=== PATIENT | male | born 1940 | race Caucasian/White ===

== ENCOUNTER 2017-06-08 08:06 | Day surgery (SDC) | payer MEDICARE, OTHER ==
[~2017-06-08] VITALS: Ht 162.6 cm; Wt 62.6 kg
[2017-06-08] MEDS ORDERED: NITROGLYCERIN 2% OINT 1 GM UNIT DOSE PACKET ONE ×2 (08:14→08:15)
[2017-06-08] MEDS ORDERED: morphine INJ 10 MG/ML 1ML (SYR OR VIAL) ONE (08:18)
[2017-06-08] MEDS ORDERED: HEParin 1000 UNIT/ML (10ML VIAL) FOR BOLUS ONE ×2 (08:18→08:37)
[2017-06-08] MEDS ORDERED: HEParin DRIP 25000 UNIT/500ML 500 ML IV ONE ×3 (08:18→13:19)
[2017-06-08] MEDS ORDERED: meTOprolol 5 MG/5 ML (LOPRESSOR) VIAL ONE (08:28)
[2017-06-08] MEDS ORDERED: HEParin 1000 UNIT/ML (10ML VIAL) FOR BOLUS IV SCH (08:30)
[2017-06-08] MEDS ORDERED: morphine INJ 10 MG/ML 1ML (SYR OR VIAL) IV STA (08:31)
[2017-06-08] MEDS ORDERED: LIDOCAINE 1% INJ 50 ML (XYLOCAINE) VIAL ONE (08:36)
[2017-06-08] MEDS ORDERED: NS IV 1000 ML 0 ML ONE (08:36)
[2017-06-08] MEDS ORDERED: NITRO DRIP 25000 MCG/D5W 250 ML IV ONE (08:37)
[2017-06-08] MEDS ORDERED: HEParin (CATH LAB) 2,000 ML IV ONE (08:37)
[2017-06-08] MEDS ORDERED: MIDAZOLAM 5 MG/5 ML (VERSED) VIAL ONE (08:38)
[2017-06-08] MEDS ORDERED: diphenhydrAMINE 50 MG/ML INJ (BENADRYL) ONE (08:39)
[2017-06-08] MEDS ORDERED: fentaNYL INJECTION 100 MCG/2 ML AMP ONE (08:39)
[2017-06-08 08:40] LABS: BASOPHILS % (AUTO) 0 % (0-10); EOSINOPHILS # (AUTO) 0.3 10^3/uL (0.0-0.3); EOSINOPHILS % (AUTO) 3 % (0-10); HEMATOCRIT 43 % (40-54); HEMOGLOBIN 14.4 G/DL (13.3-17.7); LYMPHOCYTES # (AUTO) 2.2 X 10^3 (1.0-4.0); LYMPHOCYTES % (AUTO) 23 % (12-44); MEAN CORPUSCULAR HEMOGLOBIN 33 PG (25-34); MEAN CORPUSCULAR HGB CONC 33 G/DL (32-36); MEAN CORPUSCULAR VOLUME 98 FL (80-99); MEAN PLATELET VOLUME 9.8 FL (7.4-10.4); MONOCYTES # (AUTO) 1.2 X 10^3 (0.0-1.0); MONOCYTES % (AUTO) 12 % (0-12); NEUTROPHILS # (AUTO) 5.8 X 10^3 (1.8-7.8); NEUTROPHILS % (AUTO) 61 % (42-75); PLATELET COUNT 262 10^3/uL (130-400); RED BLOOD COUNT 4.42 10^6/uL (4.35-5.85); RED CELL DISTRIBUTION WIDTH 13.9 % (10.0-14.5); WHITE BLOOD COUNT 9.5 10^3/uL (4.3-11.0)
--- NOTE | 2017-06-08 08:42 | ED Chest Pain ---
General Chief Complaint: Chest Pain Stated Complaint: CHEST PAIN Nursing Triage Note: pt reports at 0300 this am he woke up with medial cp that radiated to his l arm and soa. pt has hx of IN and stent placement x 3. Nursing Sepsis Screen: No Definite Risk Source: patient, family, EMS Exam Limitations: no limitations History of Present Illness Date Seen by Provider: Jun 08, 2017 Time Seen by Provider: 08:10 Initial Comments This 77-year-old white male presents with a complaint of severe chest pain with associated diaphoresis and shortness of breath that radiated to his left arm. 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 The paramedics in route gave the patient aspirin and 3 sublingual nitroglycerin. Patient's chest pain was minimally improved. They gave the patient 50 g of fentanyl IV. Next Patient has a history of esophageal cancer surgically removed. The patient denies vomiting, headache, lateralizing localizing neurologic complaints. Dr. Harley was notified on patient arrival. The Lugger was activated. Orders for IV metoprolol, heparin bolus and drip, and Plavix orally were received from Dr. Harley. Allergies and Home Medications Allergies Coded Allergies: No Known Drug Allergies (Unverified , 06/08/17) Patient Home Medication List Home Medication List Reviewed: Yes Review of Systems Constitutional: No fever EENTM: No Symptoms Reported Respiratory: Denies Cough; Shortness of Air Cardiovascular: See HPI, Chest Pain; Denies Palpitations, Denies Syncope Gastrointestinal: Denies Vomiting Genitourinary: No Symptoms Reported Musculoskeletal: no symptoms reported Skin: no symptoms reported Psychiatric/Neurological: No Symptoms Reported Endocrine: No Symptoms Reported Hematologic/Lymphatic: No Symptoms Reported Past Igepfsx-Qzagyn-Mujqmk Hx Past Med/Social Hx: Reviewed Nursing Past Med/Soc Hx Patient Social History Alcohol Use: Occasionally Uses Recreational Drug Use: No Smoking Status: Former Smoker Type Used: Cigarettes Former Smoker, Quit: Jun 13, 1964 Recent Foreign Travel: No Contact w/Someone Who Travel: No Recent Infectious Disease Expo: No Physical Abuse: No Sexual Abuse: No Mistreated: No Fear: No Past Medical History Nursing Suicide Risk Score: 0 Physical Exam Vital Signs Vital Signs - First Documented 06/08/17 08:16 Temp 97.2 Pulse 77 Resp 20 B/P (MAP) 136/71 (92) Pulse Ox 97 O2 Delivery Nasal Cannula O2 Flow Rate 2.0 Capillary Refill : Less Than 3 Seconds General Appearance: WD/WN, Thin HEENT: PERRL/EOMI, TMs Normal, Normal ENT Inspection, Pharynx Normal Neck: Full Range of Motion, Normal Inspection Respiratory: Chest Non Tender, Lungs Clear, Normal Breath Sounds Cardiovascular: Regular Rate, Rhythm Gastrointestinal: Normal Bowel Sounds Extremity: Normal Inspection, Normal Range of Motion, Non Tender Neurologic/Psychiatric: Alert, Oriented x3, No Motor/Sensory Deficits, Normal Mood/Affect Skin: Normal Color, Warm/Dry Progress/Results/Core Measures My Orders Orders - JEFFREY, SHREE Serrano MD Heparin (Bolus Per Protocol) (Heparin (B (06/08/17 08:30) Cbc With Automated Diff (06/08/17 08:31) Magnesium (06/08/17 08:31) Chest 1 View, Ap/Pa Only (06/08/17 08:31) Ekg Tracing (06/08/17 08:31) Cardiac Profile 1 (06/08/17 08:31) Comprehensive Metabolic Panel (06/08/17 08:31) Myoglobin Serum (06/08/17 08:31) Protime With Inr (06/08/17 08:31) Partial Thromboplastin Time (06/08/17 08:31) O2 (06/08/17 08:31) Monitor-Rhythm Ecg Trace Only (06/08/17 08:31) Lipid Panel (06/09/17 06:00) Morphine Injection (Morphine Injection (06/08/17 08:31) Saline Lock/Iv-Start (06/08/17 08:31) Heparin Injection (Heparin Injection) (06/08/17 08:45) Metoprolol Tartrate Injection (Lopressor (06/08/17 08:45) Vital Signs/I&O 06/08/17 06/08/17 08:16 08:16 Temp 97.2 Pulse 77 Resp 20 B/P (MAP) 136/71 (92) Pulse Ox 97 O2 Delivery Nasal Cannula O2 Flow Rate 2.0 Blood Pressure Mean: 92 Progress Note : Time: 08:40 Progress Note The patient's first EKG demonstrated a sinus rhythm with questionable hyperacute T waves in V2 and V3. Patient's labs were drawn and are pending. After telephone consultation with Dr. Harley the patient received a heparin bolus 5000 units, IV metoprolol 5 mg IV, and Morpine 5 mg IV. Departure Communication (Admissions) Time/Spoke to Admitting Phy: 08:20 Dr. Harley Impression Primary Impression: Chest pain Qualified Codes: I25.9 - Chronic ischemic heart disease, unspecified Disposition: 09 ADMITTED INPATIENT Condition: Improved Admissions Decision to Admit Reason: Admit from ER (General) Decision to Admit/Date: Jun 08, 2017 Time/Decision to Admit Time: 08:47 Departure-Patient Inst. Referrals: NO,LOCAL PHYSICIAN (PCP/Family) Primary Care Physician SHREE MURPHY MD Jun 08, 2017 08:42
[2017-06-08] MEDS ORDERED: PANT20TA3 (08:43)
[2017-06-08] MEDS ORDERED: DILT180C82 (08:43)
[2017-06-08] MEDS ORDERED: HYDR-3812 (08:43)
[2017-06-08] MEDS ORDERED: SITA25TA5 (08:43)
[2017-06-08] MEDS ORDERED: AMIO200T50 (08:43)
[2017-06-08] MEDS ORDERED: FEXO-46 (08:43)
[2017-06-08] MEDS ORDERED: ASPI-983 (08:43)
[2017-06-08] MEDS ORDERED: LEVO75TA (08:43)
[2017-06-08] MEDS ORDERED: BUSP5TAB59 (08:43)
[2017-06-08] MEDS ORDERED: WARF1TAB82 (08:43)
[2017-06-08 08:44] LABS: INR 1.2 (0.8-1.4); PROTHROMBIN TIME PATIENT 15.1 SEC (12.2-14.7)
[2017-06-08] MEDS ORDERED: meTOprolol 5 MG/5 ML (LOPRESSOR) VIAL IV SCH (08:45)
[2017-06-08] MEDS ORDERED: NS IV 1000 ML 1,000 ML ONE (08:49)
[2017-06-08 08:53] LABS: ALANINE AMINOTRANSFERASE 12 U/L (0-55); ALBUMIN 3.7 GM/DL (3.2-4.5); ALKALINE PHOSPHATASE 118 U/L (40-136); BILIRUBIN,TOTAL 0.5 MG/DL (0.1-1.0); BUN/CREATININE RATIO 15; CALCIUM 9.2 MG/DL (8.5-10.1); CARBON DIOXIDE 20 MMOL/L (21-32); CHLORIDE 108 MMOL/L (98-107); CREATININE SERUM 1.65 MG/DL (0.60-1.30); GFR ESTIMATED 40; GLUCOSE 206 MG/DL (70-105); MAGNESIUM 2.3 MG/DL (1.8-2.4); POTASSIUM 4.7 MMOL/L (3.6-5.0); SODIUM 141 MMOL/L (135-145); TOTAL PROTEIN 6.3 GM/DL (6.4-8.2)
--- NOTE | 2017-06-08 08:58 | Cardiology History & Physical ---
HPI-Cardiology Cardiology H&P Date of Admission 06/08/17 Primary Care Physician Simin,Local Physician Attending Physician Eagle Harley MD, MA FACP [facility]S Consulting Physician ERLIN CC: Chest pain HPI: 77 yo man with known CAD, h/o MIs, h/o cor stents who developed acute mid sternal cp [place]. Chest pain mod to sever, pressure -like, associated with diaphoresis, same as the one he has experienced with his heart attacks, radiating to L shoulder, not experienced in the recent past. Has some shortness of breath with it. Denies palp or syncope. Did take a recent fall after slipping, no syncope. The fall resulted in injuries to the L face that have been treated, according to him Review of Systems-Cardiology Review of Systems Constitutional: No weight loss, No weight gain Eyes: No vision change Ears/Nose/Throat: No ear discharge, No nasal drainage, No recent hearing loss Respiratory: As described under HPI Cardiovascular: As described under HPI Gastrointestinal: No constipation, No diarrhea; nausea; No vomiting Genitourinary: No dysuria, No hematuria, No urine frequency changes Skin: No rash, No ulcerations Psychiatric/Neurological: No seizure, No focal weakness, No syncope Hematologic: No bleeding abnormalities OXX-Lnsddt-Fovisc Hx Patient Social History Alcohol Use: Occasionally Uses Recreational Drug Use: No Smoking Status: Former Smoker Type Used: Cigarettes Recent Foreign Travel: No Recent Infectious Disease Expo: No Past Medical History PMH As described under Assessment. Family Medical History Family Medical History: He does not report fam h/o early CAD or SCD Allergies and Home Medications Allergies Coded Allergies: No Known Drug Allergies (Unverified , 06/08/17) Patient Home Medication List Home Medication List Reviewed: Yes Physical Exam-Cardiology Physical Exam Vital Signs/I&O 06/08/17 06/08/17 08:16 08:16 Temp 97.2 Pulse 77 Resp 20 B/P (MAP) 136/71 (92) Pulse Ox 97 O2 Delivery Nasal Cannula O2 Flow Rate 2.0 Capillary Refill : Less Than 3 Seconds Constitutional: AAO x 3, well-developed, well-nourished HEENT: EOMI, hearing is well preserved; No xanthelasmas are seen Neck: carotid pulses are 2 + bilaterally, with good upstrokes Respiratory: No accessory muscle use; lungs clear to percussion Cardiovascular: regular rate-rhythm, S1 and S2, systolic murmur (faint JAMES at card vase) Gastrointestinal: No tender; soft; No guarding, No rebound; audible bowel sounds Extremities: No clubbing, No cyanosis, No significant edema Neurologic/Psychiatric: grossly intact, power is 5/5 both on sides Skin: No rash on exposed areas, No ulcerations on exposed areas Data Review Labs Laboratory Tests 06/08/17 08:12: White Blood Count 9.5, Red Blood Count 4.42, Hemoglobin 14.4, Hematocrit 43, Mean Corpuscular Volume 98, Mean Corpuscular Hemoglobin 33, Mean Corpuscular Hemoglobin Concent 33, Red Cell Distribution Width 13.9, Platelet Count 262, Mean Platelet Volume 9.8, Neutrophils (%) (Auto) 61, Lymphocytes (%) (Auto) 23, Monocytes (%) (Auto) 12, Eosinophils (%) (Auto) 3, Basophils (%) (Auto) 0, Neutrophils # (Auto) 5.8, Lymphocytes # (Auto) 2.2, Monocytes # (Auto) 1.2H, Eosinophils # (Auto) 0.3, Basophils # (Auto) 0.0, Prothrombin Time 15.1H, INR Comment 1.2, Activated Partial Thromboplast Time 25, Sodium Level 141, Potassium Level 4.7, Chloride Level 108H, Carbon Dioxide Level 20L, Anion Gap 13 , Blood Urea Nitrogen 25H, Creatinine 1.65H, Estimat Glomerular Filtration Rate 40, BUN/Creatinine Ratio 15, Glucose Level 206H, Calcium Level 9.2, Magnesium Level 2.3, Total Bilirubin 0.5, Aspartate Amino Transf (AST/SGOT) 23, Alanine Aminotransferase (ALT/SGPT) 12, Alkaline Phosphatase 118, Myoglobin 81.2, Troponin I < 0.30, Total Protein 6.3L, Albumin 3.7 Laboratory Tests 06/08/17 08:12 A/P-Cardiology Assessment/Admission Diagnosis Unstable angina vs ac NSTEMI CAD with h/o stenting of LAD and LCX and RCA at [place], [place], several years ago. Last cor stent in 2010 and last cath in (according to patient and family, details unavailable) DM II CKD 3, likely due to diabetic nephropathy H/o hypothyroidism H/o PAF Chronic warfarin anticoag Abnormal ECG, susggestive of previous inferior and anterior myocardial infarctions and ST segment depression in inferolateral leads Admission Status: Inpatient Order (span 2 midnights) Reason for Inpatient Admission: Acute PA Discussion and Recomendations * Given continuing symptoms, we discussed card cath. We did explain the procedure, risks, benefits, potential complications, and alternatives of card cath and possible cor intervention. We discussed his risk for contrast nephropathy, which is much higher than usual, given his baseline kidney disease. He understands all of the above and provides informed consent Clinical Quality Measures AMI/AHF: ASA po Prior to arrival: Yes (324 mg) EAGLE HARLEY MD FACP FACC CCDS Jun 08, 2017 08:58
[2017-06-08 09:00] LABS: MYOGLOBIN SERUM 81.2 NG/ML (10.0-92.0)
[2017-06-08 09:45] VITALS: BP 125/63
--- NOTE | 2017-06-08 09:45 | Cardiology Discharge Summary ---
Diagnosis/Chief Complaint Date of Admission 06/08/17 Date of Discharge 06/08/17 Admission Diagnosis Unstable angina vs ac NSTEMI CAD with h/o stenting of LAD and LCX and RCA at [place], [place], several years ago. Last cor stent in 2010 and last cath in (according to patient and family, details unavailable) DM II CKD 3, likely due to diabetic nephropathy H/o hypothyroidism H/o PAF Chronic warfarin anticoag Abnormal ECG, susggestive of previous inferior and anterior myocardial infarctions and ST segment depression in inferolateral leads Final/Discharge Diagnosis Unstable angina vs ac NSTEMI CAD with h/o stenting of LAD and LCX and RCA at [place], [place], several years ago. Card cath of 06/08/17: 80% distal LMCA, prox occlusion of LAD, 80% ostial LCX, patent stent in mid LCX, patent stent in mid RCA, elevated LVEDP, LVEF 25- 30% DM II CKD 3, likely due to diabetic nephropathy H/o hypothyroidism H/o PAF Chronic warfarin anticoag Abnormal ECG, susggestive of previous inferior and anterior myocardial infarctions and ST segment depression in inferolateral leads Chief Complaint/HPI Chief Complaint/HPI CC: Chest pain HPI: 77 yo man with known CAD, h/o MIs, h/o cor stents who developed acute mid sternal cp while [place] a local [place]. Chest pain mod to sever, pressure -like, associated with diaphoresis, same as the one he has experienced with his heart attacks, radiating to L shoulder, not experienced in the recent past. Has some shortness of breath with it. Denies palp or syncope. Did take a recent fall after slipping, no syncope. The fall resulted in injuries to the L face that have been treated, according to him Card cath was performed. Results are noted above. Given the coronary anatomy described above, CABG appears to be the best treatment option. I spoke with Dr Orlando of CV Surg at [facility] in [place], [place], who has kindly accepted the patient in transfer. I have spoken with the patient and his family. They agree. He is clinically stable at this time: no chest pain and stable vital signs Discharge Summary Procedures Card cath on 06/08/17 Hospital Course Pending Labs Laboratory Tests 06/08/17 08:12: White Blood Count 9.5, Red Blood Count 4.42, Hemoglobin 14.4, Hematocrit 43, Mean Corpuscular Volume 98, Mean Corpuscular Hemoglobin 33, Mean Corpuscular Hemoglobin Concent 33, Red Cell Distribution Width 13.9, Platelet Count 262, Mean Platelet Volume 9.8, Neutrophils (%) (Auto) 61, Lymphocytes (%) (Auto) 23, Monocytes (%) (Auto) 12, Eosinophils (%) (Auto) 3, Basophils (%) (Auto) 0, Neutrophils # (Auto) 5.8, Lymphocytes # (Auto) 2.2, Monocytes # (Auto) 1.2, Eosinophils # (Auto) 0.3, Basophils # (Auto) 0.0, Prothrombin Time 15.1, INR Comment 1.2, Activated Partial Thromboplast Time 25, Sodium Level 141, Potassium Level 4.7, Chloride Level 108, Carbon Dioxide Level 20, Anion Gap 13, Blood Urea Nitrogen 25, Creatinine 1.65, Estimat Glomerular Filtration Rate 40, BUN/Creatinine Ratio 15, Glucose Level 206, Calcium Level 9.2, Magnesium Level 2.3, Total Bilirubin 0.5, Aspartate Amino Transf (AST/SGOT) 23, Alanine Aminotransferase (ALT/SGPT) 12, Alkaline Phosphatase 118, Myoglobin 81.2, Troponin I < 0.30, Total Protein 6.3, Albumin 3.7 Discussion & Recommendations Home Medications Reviewed patient Home Medication Reconciliation performed by pharmacy medication reconciliations chemical research technician and/or nursing. Patients Allergies have been reviewed. Discharge Home Medications: Reviewed and agree with Discharge Medication list on patient's Discharge Instruction sheet Clinical Quality Measures AMI/AHF: ASA po Prior to arrival: Yes (324 mg) LAWSON SLOAN MD FACP FAC [facility]S Jun 08, 2017 09:45
[2017-06-08 10:00] VITALS: BP 111/53
[2017-06-08 10:15] VITALS: BP 116/58
--- NOTE | 2017-06-10 15:37 | Physician Query-General Query ---
Physician Query-General Query to Physician: Final/Discharge Diagnosis Unstable angina vs ac NSTEMI Per Outpatient coding guidelines: VS cannot be coded. Please give specific diagnosis or sign/symptom thank you PHYSICIAN RESPONSE: Based on the clinical findings in the record, please respond to the query above on this document as an addendum. Possible, probable, or questionable diagnosis can be coded for INPATIENTS ONLY. Physician Response: Physician Response NSTEMI If you have questions please contact: Healthcare Customer Service: Kari Pryor Ext: [phone] Thank you for your time and cooperation. Clinical Gear Nicker/Healthcare Customer Service This is a permanent part of the medical record MARIA G PRYOR Jun 10, 2017 15:37 LAWSON SLOAN MD [facility] Jun 10, 2017 17:50
--- NOTE | 2017-06-17 14:05 | Cardiac Procedure Note-CS/ASA ---
Pre-Procedure Note Pre-Op Procedure Note H&P Reviewed The H&P was reviewed, patient examined and no changes noted. Date H&P Reviewed: Jun 08, 2017 Time H&P Reviewed: 08:55 Conscious Sedation Pre-Proced Time Reviewed: 08:55 ASA Class: 3, 4 Airway Mallampati Classification: (qagan tayagungin appropriate class) I. II. III, IV Lungs Heart ASA score ASA 1: a normal healthy patient ASA 2: a patient with a mild systemic disease (mid diabetes, controlled hypertension, obesity ASA 3: a patient with a severe systemic disease that limits activity (angina , COPD, prior Myocardial infarction) ASA 4: a patient with an incapacitating disease that is a constant threat to life (CHF, renal failure) ASA 5: a moribund patient not expected to survive 24 hrs. (ruptured aneurysm) ASA 6: a declared brain patient whose organs are being harvested. For emergent operations, add the letter E after the classification Grade 2 Sedation Plan: Analgesia, Amnesia, Plan communicated to team members, Discussed options with patient/fam, Discussed risks with patient/fam Note The patient is an appropriate candidate to undergo the planned procedure, sedation, and anesthesia. The patient immediately re-assessed prior to indication. LAWSON SLOAN MD FACP FAC CCDS Jun 17, 2017 14:05
--- NOTE | 2017-06-17 20:55 | CARDIAC CATHETERIZATION ---
DATE OF SERVICE: 06/08/2017 CARDIAC CATHETERIZATION REPORT The patient is a 77-year-old man with a history of coronary artery disease and a prior history of myocardial infarctions and coronary stents, who presented with unstable angina versus acute non-ST elevation myocardial infarction. Urgent cardiac catheterization was carried out after having obtained an informed consent. DESCRIPTION OF PROCEDURE: He was brought to the cardiac catheterization laboratory in a fasting state. Right groin was prepared and draped in usual sterile fashion. A 1% lidocaine local anesthesia. Modified Seldinger technique was used to advance a 6-Anguillan sheath in the right femoral artery. A 6-Anguillan JL4 catheter for left coronary angiography. A 6-Anguillan JR4 catheter was used for right coronary angiography. A 6-Anguillan pigtail catheter was used for left heart catheterization and left ventricular angiography. Following completion of diagnostic procedure and removal of the diagnostic catheters angiography of the right femoral artery was carried out through the sheath and Mynx was used to achieve hemostasis. His coronary anatomy was such that we felt that coronary artery bypass surgery needs to be considered and we spoke with Dr. Orlando, Cardiovascular Surgeon Service at [facility] and the patient was subsequently transferred to [facility]. HEMODYNAMICS: Left ventricular end-diastolic pressure following coronary angiography was 30 mmHg. There is no significant pressure gradient on pullback across the aortic valve. Ascending aortic pressure 121/43 with a mean of 72 mmHg. CORONARY ANGIOGRAPHY: Diffuse coronary calcification is present. Left main coronary artery had 80% distal stenosis, which also involved the ostia of the left anterior descending and the left circumflex arteries. The left anterior descending artery was completely occluded in its mid portion following the origin of a septal branch. The right coronary artery had a patent stent in its mid portion and appeared to be occluded following what appears to be a right ventricular branch that also subserves as the posterior descending. LEFT VENTRICULAR ANGIOGRAPHY: Left ventricular angiography was carried out in the right anterior oblique projection. There is impairment of global left ventricular systolic function. Left ventricular ejection fraction is approximately 25% to 30%. There is anteroapical and posterobasal hypokinesis to akinesis. There does not appear to be significant with mitral vegetations. CONCLUSIONS: 1. Coronary artery disease consisting of 80% stenosis of the distal left main coronary artery that involves the origin of the left circumflex and the left anterior descending arteries, mid vessel occlusion of the left anterior descending artery, patent stent in the mid right coronary artery, but distal occlusion of the right coronary artery following the origin of a right ventricular branch. 2. Impairment of global left ventricular systolic function with ejection fraction 25% to 30% and anteroapical and posterobasal akinesis and elevated left ventricular end-diastolic pressure. Job ID: [id number] DocumentID: [id number] Dictated Date: 06/17/2017 14:13:28 Drilling Rig Operator Date: 06/17/2017 20:54:51 Dictated By: LAWSON SLOAN MD, MA, FACP, FACC, MTDD
== END 2017-06-08 10:35 | disposition short-term general hospital (02) ==
LOC: ER 08:06 → CATH 08:43 → ICU 09:45 → CATH 10:35
PROVIDERS: ATTEND Internal Medicine Cardiovascular Disease
DX: I21.4 Non-ST elevation (NSTEMI) myocardial infarction (principal); I25.10 Atherosclerotic heart disease of native coronary artery without angina pectoris; E11.22 Type 2 diabetes mellitus with diabetic chronic kidney disease; N18.3 Chronic kidney disease, stage 3 (moderate); E03.9 Hypothyroidism, unspecified; I48.0 Paroxysmal atrial fibrillation; I25.2 Old myocardial infarction; Z79.01 Long term (current) use of anticoagulants; Z87.891 Personal history of nicotine dependence; Z95.5 Presence of coronary angioplasty implant and graft
CPT/HCPCS: 36415; 80053; 83735; 83874; 84484; 85025; 85610; 85730; 93005; 93041; 93458; 96374; 96375